=== PATIENT | female | born 1980 | race Caucasian/White ===

== ENCOUNTER 2017-03-25 15:37 | Emergency (ER) | payer OTHER ==
[~2017-03-25] VITALS: Ht 170.2 cm; Wt 75.8 kg
--- NOTE | ~2017-03-25 | EKG ---
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
[2017-03-25] MEDS ORDERED: IRON325 PO ×2 (15:44→17:55)
[2017-03-25 16:17] LABS: HEMATOCRIT 30.9 % (37.0-47.0); HEMOGLOBIN 9.5 gm/dL (12.0-15.0); MANUAL DIFF YES; MCH 22.3 pg (26.0-34.0); MCHC 30.9 g/dL (28.0-37.0); MCV 72.2 fL (80.0-100.0); PLATELET COUNT 346 thou/uL (150-400); RBC 4.28 mil/uL (4.20-5.00); RDW 24.2 % (10.5-14.5)
[2017-03-25 16:21] LABS: CALCIUM 8.7 mg/dL (8.5-10.1); CREATININE 0.7 mg/dL (0.6-1.0); POTASSIUM 3.6 mmol/L (3.5-5.1)
[2017-03-25 16:40] LABS: ABSOLUTE NEUTROPHILS 5.8 thou/uL (1.4-8.2); ANISOCYTOSIS 2+; HYPOCHROMASIA 2+; MICROCYTES 2+; TOTAL CELL COUNT 100
[2017-03-25 16:41] LABS: POIKILOCYTOSIS SLIGHT; POLYCHROMASIA OCCASIONAL
[2017-03-25 17:16] LABS: URINE BILIRUBIN NEGATIVE (Negative); URINE BLOOD TRACE (Negative); URINE COLOR YELLOW; URINE GLUCOSE-RANDOM* NEGATIVE (Negative); URINE KETONES NEGATIVE (Negative); URINE NITRITE NEGATIVE (Negative); URINE PROTEIN (DIPSTICK) NEGATIVE (Negative); URINE UROBILINOGEN 0.2 E.U./dl (0.2-1.0)
[2017-03-25] MEDS ORDERED: PHENERGAN 25 MG25 M1 PO (17:55)
[2017-03-25 18:36] VITALS: BP 123/75
== END 2017-03-25 18:36 | disposition home or self-care (01) ==
LOC: ER 15:37
PROVIDERS: Physician Assistant
DX: D64.9 Anemia, unspecified (principal); Z91.030 Bee allergy status

== ENCOUNTER 2017-04-07 15:50 | Emergency (ER) | payer OTHER ==
[~2017-04-07] VITALS: Ht 160 cm; Wt 68.0 kg
--- NOTE | ~2017-04-07 | EKG ---
[place] [address] [facility] [place] [address] ELECTROCARDIOGRAM REPORT Name: ELEUTERIO ANDREWS Room #: [facility]#: [id number] Admission: 04/07/17 Attend Phys: Discharge: 04/07/17 Date of : 78 Report #: [id number] THIS REPORT FOR: //name// [facility] ED Test Date: 2017-04-07 Test Time: 16:26:42 Pat Name: ELEUTERIO ANDREWS Department: Room: Gender: F Director Informatics: LAURA : 1980 Requested By: Margarita Guajardo Order Number: [id number] MD: Elio Noland Measurements Intervals [place] Rate: 87 P: -17 [place]: 124 QRS: 45 QRSD: 101 T: 38 QT: 336 QTc: 404 Interpretive Statements Sinus rhythm No significant abnormality Compared to ECG 03/25/2017 15:51:23 No significant changes Electronically Signed On 04-09-2017 7:51:24 SENIOR OPERATIONS ANALYST by Elio Noland [email or web address] <ELECTRONICALLY SIGNED> By: Elio Noland MD, [facility] 04/09/17 [id number] Elio Noland MD, FACC /EPI
[~2017-04-07 15:50] MED LIST: IRON325 PO; PHENERGAN 25 MG25 M1 PO
[2017-04-07 16:40] LABS: HEMOGLOBIN 9.6 gm/dL (12.0-15.0); MCH 23.7 pg (26.0-34.0); MCV 74.1 fL (80.0-100.0); PLATELET COUNT 260 thou/uL (150-400); RBC 4.06 mil/uL (4.20-5.00); RDW 24.5 % (10.5-14.5); WBC 7.6 thou/uL (4.0-11.0)
[2017-04-07 16:43] LABS: URINE BILIRUBIN NEGATIVE (Negative); URINE BLOOD 2+ (Negative); URINE COLOR YELLOW; URINE GLUCOSE-RANDOM* NEGATIVE (Negative); URINE KETONES NEGATIVE (Negative); URINE NITRITE NEGATIVE (Negative); URINE PROTEIN (DIPSTICK) NEGATIVE (Negative); URINE SPECIFIC GRAVITY 1.015 (1.005-1.035); URINE UROBILINOGEN 0.2 E.U./dl (0.2-1.0)
[2017-04-07 16:43] LABS: MANUAL DIFF YES
[2017-04-07 16:47] LABS: CREATININE 0.7 mg/dL (0.6-1.0); POTASSIUM 3.5 mmol/L (3.5-5.1)
[2017-04-07 16:52] LABS: BACTERIA 1-9 Few /HPF (None Seen); CASTS None Seen /LPF (None Seen); CRYSTALS None Seen /LPF (None Seen); SQUAMOUS 0-3 Few /LPF (0-3); URINE RBC 3-10 Few /HPF (0-2)
[2017-04-07 16:53] LABS: URINE WBC None Seen /HPF (0-5)
[2017-04-07 17:12] LABS: ABSOLUTE NEUTROPHILS 5.1 thou/uL (1.4-8.2); TOTAL CELL COUNT 100
[2017-04-07 17:13] LABS: ANISOCYTOSIS 1+; HYPOCHROMASIA 1+; MICROCYTES 2+; POLYCHROMASIA OCCASIONAL
[2017-04-07 17:36] VITALS: BP 127/82
== END 2017-04-07 17:37 | disposition home or self-care (01) ==
LOC: ER 15:50
PROVIDERS: Physician Assistant
DX: D64.9 Anemia, unspecified (principal); E86.0 Dehydration; Z91.030 Bee allergy status